=== PATIENT | male | born 1960 | race Caucasian/White ===

== ENCOUNTER → 2023-07-28 10:48 | Outpatient (CLI) | payer OTHER, SELFPAY ==
--- NOTE | 2023-07-28 10:52 | DI.RAD.S_ITS ---
PROCEDURE: FL BARIUM SWALLOW W SPEECH INDICATIONS: Dysphagia, unspecified COMPARISON: TECHNIQUE: Examination was conducted in conjunction with speech pathology per standard protocol. In the lateral projection, filming was performed of the patient swallowing. AP projection filming may also be performed with patient swallowing. COMPARISON: [facility], CR, XR HAND 3+ VIEWS BILATERAL, 11/03/2022, 13:59. FINDINGS: Function: No laryngotracheal penetration or aspiration. There is trace pathologic vallecular pooling. Morphology: No cricopharyngeal bar is identified. No cervical esophageal webs. No Zenker's diverticulum. No strictures. IMPRESSION: 1. No laryngeal penetration or aspiration. Trace vallecular crawling. Please see separate speech pathologist's report. Dictated by: Shannan Gomez M.D. on 07/28/2023 at 12:00 Approved by: Shannan Gomez M.D. on 07/28/2023 at 12:01
--- NOTE | 2023-07-28 13:54 | ST.SWALLOW ---
Visit Care Team Role Provider Type Sharon Collins MD Attending Provider Non-Staff Referring Provider Specialty: Family Practice Address: [address] [place] [address], [id number] Email: Modified Barium Swallow Study [employer] Modified Barium Swallow Study Start: 07/28/23 13:23 Freq: Status: Active Protocol: Document 07/28/23 13:23 LNK (Rec: 07/28/23 13:54 [id number]) Modified Barium Swallow Study Total Time Visit Start Time 11:15 Visit Stop Time 11:45 Total Visit Minutes [address] Parks Setting Setting Outpatient Care Patient Information Identification Type Name,Date of Patient History pt was seen for a Modified Barium Swallow Study at the referral of Dr. Parks. Pt reports that about 3-4 months ago, when he is exercising (e. g., hiking , walking, etc), he notices a sense of globus in his sternal area. Pt stated he may eat or drink something without exercise and still may develop this sensation. pt stated that he is scheduled for other assessments such as a cardiac stress test in the near future. Pt reported a medical history of anxiety, possible reflux and food allergies. Subjective Observations pt was seated in the fluoroscopy chair with instructions and procedures describes for him. Patient Positioning Position View Lat-A/P Imaging Lateral View Textures Administered Trials Presented Thin Liquid via Spoon (IDDSI 0 ),Thin Liquid via Cup (IDDSI 0 ),Extremely Thick Liquid via Spoon (IDDSI 4),Regular (IDDSI 7) Barium Tablet Yes The IDDSI Framework Protocol: IDDSI.1 Oral Impairment Source: The Modified Barium Swallow Impairment Profile (MBSImP??) Lip Closure No labial escape Tongue Control During Bolus Hold Cohesive bolus between tongue to palatal seal Bolus Preparation/Mastication Timely & efficient chewing & mashing Bolus Transport/Lingual Motion Brisk tongue motion Oral Residue Complete oral clearance,Trace residue lining oral structures Location Tongue Initiation of Pharyngeal Swallow Bolus head in valleculae Additional Oral Impairment Observations OME and DKS were observed to be WNL. mastication was adequate with rotary pattern noted. Oral phase WNL Pharyngeal Impairment Source: The Modified Barium Swallow Impairment Profile (MBSImP??) Soft Palate Elevation No bolus between soft palate & pharyngeal wall Laryngeal Elevation Comp.sup.move.thyroid cart.w/ comp.approx.arytenoids to epiglot petiole Anterior Hyoid Excursion Complete anterior movement Epiglottic Movement Complete inversion Laryngeal Vestibular Closure Complete; no air/contrast in laryngeal vestibule Pharyngeal Stripping Wave Present - complete Pharyngoesophageal Segment Opening Complete distention & complete duration; no obstruction of flow Tongue Base Retraction No contrast between tongue base & posterior pharyngeal wall Pharyngeal Residue Trace residue within/on pharyngeal structures Additional Pharyngeal Impairment Flash penetration into the Observations laryngeal vestibule was noted x1 with consecutive swallows. Immediate reflexive throat clear was observed in response . Overall, pharyngeal structures and function were observed to be WNL. A/P View Textures Administered Trials Presented Thin Liquid via Spoon (IDDSI 0 ) The IDDSI Framework Protocol: IDDSI.1 A/P View Observations Pharyngeal Contraction Complete Esophageal Clearance Upright Position Complete clearance; esophageal coating Vocal Fold Function Good Esophageal Function WFL Clinical Impressions Dysphagia Type WNL Findings All phases of the pt's swallow were observed to be WNL. Patient Appropriate for Therapy No Recommendations Diet Comments no changes in diet recommended at this time Aspiration Precautions Recommended Precautions Upright at 90 Degrees Treatment Plan Therapy Strategy Recommendations Sitting Upright (90 deg)
== END ==
PROVIDERS: Referring Provider Family Medicine; Visit Provider Family Medicine
DX: R13.10 Dysphagia, unspecified (principal)
CPT/HCPCS: 74230; 92611